=== PATIENT | female | born 1945 | race Two or more races ===

== ENCOUNTER → 2017-11-12 | Outpatient (CLI) | payer MEDICARE, MEDICAID | END | disposition home or self-care (01) | LOC: ECHO 08:25 | DX: I08.1 Rheumatic disorders of both mitral and tricuspid valves (principal); R06.00 Dyspnea, unspecified; R53.83 Other fatigue | CPT/HCPCS: 93306 ==

== ENCOUNTER → 2018-03-30 | Outpatient (CLI) | payer MEDICARE, MEDICAID | END | disposition home or self-care (01) | LOC: MAMMO 13:18 | DX: Z12.31 Encounter for screening mammogram for malignant neoplasm of breast (principal); E11.9 Type 2 diabetes mellitus without complications; E78.00 Pure hypercholesterolemia, unspecified | CPT/HCPCS: 77063; 77067 ==

== ENCOUNTER → 2018-08-30 | Outpatient (CLI) | payer MEDICARE, MEDICAID ==
[2016-09-08 11:45] VITALS: BP 149/70
[~2018-08-30] MED LIST: HYDR-971 PO
--- NOTE | 2018-08-30 11:33 | RAD ---
EXAM: Abdomen sonogram. HISTORY: Right upper quadrant pain. TECHNIQUE: Sonographic imaging of the abdomen was performed. COMPARISON: None. FINDINGS: There is hepatomegaly and hepatic steatosis. No focal hepatic lesion is seen. The common bile duct is obscured. The gallbladder is surgically absent. The kidneys are normal in size. There is a small left renal cyst measuring 2.6 cm. The pancreas is obscured. The spleen is normal in size. The aorta and inferior cava are unremarkable. IMPRESSION: 1. Hepatomegaly and hepatic steatosis. 2. Obscured pancreas and common bile duct. 3. 2.6 cm left renal cyst. 4. Cholecystectomy. Electronically signed by: Madelaine Bender MD (08/30/2018 11:29 AM) [id number]
== END | disposition home or self-care (01) ==
LOC: US 07:00
PROVIDERS: ATTEND Family Medicine
DX: K76.0 Fatty (change of) liver, not elsewhere classified (principal); N28.1 Cyst of kidney, acquired; R16.0 Hepatomegaly, not elsewhere classified; Z90.49 Acquired absence of other specified parts of digestive tract
CPT/HCPCS: 76700

== ENCOUNTER → 2019-04-05 | Outpatient (CLI) | payer MEDICARE, MEDICAID ==
[2016-09-08 11:45] VITALS: BP 149/70
[~2019-04-05] MED LIST changes: +HYDR-3164 PO; -HYDR-971 PO
--- NOTE | 2019-04-05 13:07 | RAD ---
DATE: 04/05/2019 EXAM: MAMMO MAO SCREENING BILATERAL HISTORY: Routine screening COMPARISON: 03/30/2018 This study was interpreted with the benefit of Computerized Aided Detection (CAD). Breast Density: FATTY The breast parenchyma is primarily fatty replaced. Breast parenchyma level density A. FINDINGS: 2-D and 3-D tomosynthesis imaging was performed in CC and MLO projections. No new or enlarging breast densities are seen. No suspicious microcalcifications are evident. IMPRESSION: Stable mammograms without evidence of malignancy. BI-RADS CATEGORY: 2 BENIGN FINDING(S) RECOMMENDED FOLLOW-UP: 12M 12 MONTH FOLLOW-UP PQRS compliance statement: Patient information was entered into a reminder system with a target due date for the next mammogram. Mammography is a sensitive method for finding small breast cancers, but it does not detect them all and is not a substitute for careful clinical examination. A negative mammogram does not negate a clinically suspicious finding and should not result in delay in biopsying a clinically suspicious abnormality. "Our facility is accredited by the [employer] Mammography Program."
== END | disposition home or self-care (01) ==
LOC: MAMMO 12:25
PROVIDERS: ATTEND Family Medicine
DX: Z12.31 Encounter for screening mammogram for malignant neoplasm of breast (principal)
CPT/HCPCS: 77063; 77067

== ENCOUNTER 2019-12-02 13:30 | Emergency (ER) | payer MEDICARE, MEDICAID ==
[2019-12-02 15:20] VITALS: BP 129/77
[2019-12-02] MEDS ORDERED: PERM60CR12 TP (16:02)
--- NOTE | 2019-12-02 16:02 | PHYS DOC ---
Past Medical History Past Medical History: Diabetes-Type II, High Cholesterol, Other Additional Past Medical Histor: SLEEP PROBLEMS Past Surgical History: Appendectomy, Cholecystectomy, Other Additional Past Surgical Histo: LEG SURGERY, LEFT KNEE SURGERY Alcohol Use: None Drug Use: None Adult General Chief Complaint Chief Complaint: MEDICATION REFILL HPI HPI Patient is a 74 year old female who presents with states that for the last month or so she has noticed she is itching a lot but she and her scalp and on her neck and she would pressure hair she would see aches fall out. She states that she went to a different primary care doctor that ordered the Permitherin c ream for her. She states that last night she applied it and she felt better but she used the whole tube because she wanted the box to go away. She states that she has had her apartment complex come in and they gave her a new mattress that is sealed and had the apartment bombed for insects. He shouldn't is here for more cream so she can apply again a couple of days. Review of Systems Review of Systems Integument: Body lice. Itching. Denies rash or skin lesions [] All other systems were reviewed and found to be within normal limits, except as documented in this note. Allergies Allergies Allergies Coded Allergies Type Severity Reaction Last Updated Verified No Known Drug Allergies 07/11/15 No Physical Exam Physical Exam Constitutional: Well developed, well nourished, no acute distress, non-toxic appearance. [] HENT: Normocephalic, atraumatic, bilateral external ears normal, oropharynx moist, no oral exudates, nose normal. [] Eyes: PERRLA, EOMI, conjunctiva normal, no discharge. [] Neck: Normal range of motion, no tenderness, supple, no stridor. [] Cardiovascular:Heart rate regular rhythm, no murmur [] Lungs & Thorax: Bilateral breath sounds clear to auscultation [] Abdomen: Bowel sounds normal, soft, no tenderness, no masses, no pulsatile masses. [] Skin: Warm, dry, no erythema, no rash. [] Back: No tenderness, no CVA tenderness. [] Extremities: No tenderness, no cyanosis, no clubbing, ROM intact, no edema. [] Neurologic: Alert and oriented X 3, normal motor function, normal sensory function, no focal deficits noted. [] Psychologic: Affect normal, judgement normal, mood normal. Normal Physical Exam[] Current Patient Data Vital Signs Vital Signs Date Time Temp Pulse Resp B/P (MAP) Pulse Ox O2 Delivery O2 Flow Rate FiO2 12/02/19 15:20 98.0 89 18 129/77 (94) Room Air 97.0 98.0 EKG EKG [] Radiology/Procedures Radiology/Procedures [] Course & Med Decision Making Course & Med Decision Making Alert and oriented. Speaks in full clear sentences. [employer] phone use. She is [place]-speaking. Patient states that these insects are driving her nuts and she feels like she can hear them at night and filled them crawling on her. She is wanting neither does the cream to make sure they're gone. She states that she has cleaned even her sheets and everything in the house. When I looked up the patient's scalp or head have not seen any insects or nits. No rashes seem. I have given her a prescription use in 2 days. Patient is told she needs to follow-up with her primary care provider especially if she continues to have symptoms. She states her understanding. She denies any pain. Dragon Disclaimer Dragon Disclaimer This electronic medical record was generated, in whole or in part, using a voice recognition dictation system. Departure Departure Impression: Primary Impression: Body lice Additional Impression: Itchy skin Disposition: 01 HOME, SELF-CARE Condition: STABLE Referrals: TRISTEN TOMLINSON MD (PCP) Patient Instructions: Body Lice, FAQs Additional Instructions: Use medication as prescribed. No tear primary care doctor if this continues. Scripts Permethrin (PERMETHRIN) 60 Gm Cream..g. 1 BELTRAN TP ONCE, #60 GM 1 Refill Apply to neck and scalp. Rinse off in 15 minutes. May repeat in 2-3 days. Prov: GILBERTO CARR APRN 12/02/19 Problem Qualifiers GILBERTO CARR APRN Dec 02, 2019 16:02
== END 2019-12-02 16:12 | disposition home or self-care (01) ==
LOC: ER 13:30
DX: B85.1 Pediculosis due to Pediculus humanus corporis (principal); L29.8 Other pruritus; Z76.0 Encounter for issue of repeat prescription; E78.00 Pure hypercholesterolemia, unspecified; E11.9 Type 2 diabetes mellitus without complications
CPT/HCPCS: 99282